=== PATIENT | female | born 2000 | race African-American/Black ===

== ENCOUNTER → 2024-07-18 | Outpatient (REF) | payer BC ==
[~2024-07-18] MED LIST: LIDOCAINE HCL 1% 30ML-PF VIAL ONE
[2024-07-18 12:14] LABS: BASOPHILS % 0.8 % (0.0-1.0); EOSINOPHILS # (AUTO) 0.1 (0.0-0.4); EOSINOPHILS % 1.3 % (0.0-6.0); HEMATOCRIT 38.8 % (34.2-44.1); HEMOGLOBIN 11.5 g/dL (12.0-16.0); LYMPHOCYTES # (AUTO) 2.2 (1.0-3.2); LYMPHOCYTES % 45.7 % (18.0-39.1); MEAN CORPUSCULAR HEMOGLOBIN 21.7 pg (28-32); MEAN CORPUSCULAR HGB CONC 29.6 g/dL (31-35); MEAN CORPUSCULAR VOLUME 73.3 fL (81-99); MONOCYTES # (AUTO) 0.3 (0.2-0.8); MONOCYTES % 6.1 % (4.4-11.3); NEUTROPHILS # (AUTO) 2.2 (2.1-6.9); NEUTROPHILS % 46.1 % (38.7-80.0); PLATELET COUNT 291 x10e3/uL (140-360); RED BLOOD COUNT 5.29 x10e6/uL (3.6-5.1); RED CELL DISTRIBUTION WIDTH 13.4 % (11.7-14.4); WHITE BLOOD COUNT 4.75 x10e3/uL (4.8-10.8)
[2024-07-18 12:28] LABS: INR 0.93; PARTIAL THROMBOPLASTIN TIME 30.2 seconds (23.8-35.5)
[2024-07-18 14:41] LABS: APPEARANCE,CSF CLEAR (CLEAR); COLOR,CSF COLORLESS (COLORLESS); RED BLOOD CELL,CSF 0 cells/uL (0-10); TUBE NUMBER 3; WHITE BLOOD CELL,CSF 2 cells/uL (0-5)
[2024-07-18 14:47] LABS: TOTAL PROTEIN,CSF 24.5 mg/dL (15-40)
== END ==
LOC: DX 11:33
PROVIDERS: ATTEND Optometrist
DX: H47.10 Unspecified papilledema (principal)
CPT/HCPCS: 36415; 62328; 82945; 84157; 85025; 85610; 85730; 87070; 87205; 89051; J2003